=== PATIENT | female | born 1995 | race Two or more races ===

== ENCOUNTER 2022-06-28 09:18 | Emergency (ER) | payer MEDICAID ==
[~2022-06-28] VITALS: Ht 162.6 cm; Wt 70.0 kg
[2022-06-28 09:20] VITALS: BP 131/66
[2022-06-28] MEDS ORDERED: TETANUS-DIPTH-ACEL PERTUSSIS 0.5ML SYR Tdap IM ONE (10:00)
[2022-06-28] MEDS ORDERED: CEPH500C PO (10:44)
== END 2022-06-28 11:08 | disposition home or self-care (01) ==
LOC: ER 09:18
DX: S81.812A Laceration without foreign body, left lower leg, initial encounter (principal); S51.812A Laceration without foreign body of left forearm, initial encounter; W18.09XA Striking against other object with subsequent fall, initial encounter; Y93.89 Activity, other specified; Y92.89 Other specified places as the place of occurrence of the external cause; Y99.8 Other external cause status
CPT/HCPCS: 12006; 90471; 90715